=== PATIENT | male | born 1960 | race Caucasian/White ===

== ENCOUNTER 2016-07-08 22:13 | Emergency (ER) | payer BC ==
[2016-07-08] MEDS ORDERED: FLEXERIL10 MG PO (22:30)
[2016-07-08] MEDS ORDERED: LOSARTAN POTASS50 MG PO (22:31)
== END 2016-07-09 00:22 | disposition home or self-care (01) ==
LOC: SED 22:13
DX: I10 Essential (primary) hypertension (principal); F41.9 Anxiety disorder, unspecified; F17.200 Nicotine dependence, unspecified, uncomplicated; Z79.899 Other long term (current) drug therapy
CPT/HCPCS: 99283